=== PATIENT | female | born 1965 | race Caucasian/White ===

== ENCOUNTER 2020-12-17 13:18 | Emergency (ER) | payer BC ==
[2020-12-17] MEDS ORDERED: Ondansetron 4 MG Tab.DIS PO ONE (13:58)
[2020-12-17] MEDS ORDERED: Acetaminophen/HYDROcodone 325-5 MG Tab PO ONE (13:58)
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
--- NOTE | 2020-12-20 09:31 | CR ---
Ribs 2V w Chest Lt CLINICAL HISTORY: Trauma FINDINGS: There are minimally displaced fractures of the tips of the ninth and 10th ribs. Lungs are clear. There is no pneumothorax IMPRESSION: Minimally displaced fractures of the distal 10th and 11th ribs
== END 2020-12-17 15:01 | disposition home or self-care (01) ==
LOC: JP.ED 13:18
DX: S29.9XXA Unspecified injury of thorax, initial encounter (principal); W22.8XXA Striking against or struck by other objects, initial encounter
CPT/HCPCS: 71101; 99283; A9270